=== PATIENT | female | born 1985 | race Two or more races ===

== ENCOUNTER 2018-07-24 20:07 | Emergency (ER) | payer MEDICAID ==
[~2018-07-24] VITALS: Ht 175.3 cm; Wt 95.3 kg
[~2018-07-24 20:07] MED LIST: PRENAVITE
[2018-07-24 20:24] VITALS: BP 112/77
== END 2018-07-25 00:33 | disposition left against medical advice (07) ==
LOC: ER 20:22
DX: M79.674 Pain in right toe(s) (principal); Z53.21 Procedure and treatment not carried out due to patient leaving prior to being seen by health care provider